=== PATIENT | female | born 1955 | race Caucasian/White ===

== ENCOUNTER 2021-07-08 10:00 | Outpatient (RCR) | payer MEDICARE, SELFPAY | END 2021-09-06 16:03 | disposition home or self-care (01) | LOC: HO.WCC 10:00 | PROVIDERS: PCP Family Medicine; Visit Provider Surgery | DX: Z09 Encounter for follow-up examination after completed treatment for conditions other than malignant neoplasm (principal); Z87.2 Personal history of diseases of the skin and subcutaneous tissue | CPT/HCPCS: 11042; 99212; 99213 ==